=== PATIENT | female | born 1995 | race Two or more races ===

== ENCOUNTER 2024-06-02 12:42 | Emergency (ER) | payer OTHER ==
[2024-06-02 13:07] VITALS: BP 109/77; PULSE 83; RESP 16; TEMP 98.2; BMI 18.6
[2024-06-02 15:45] LABS: THROAT:GRP A STREP NOT DETECTED (NOTDETECTED)
== END 2024-06-02 14:35 | disposition home or self-care (01) ==
LOC: FER 12:42
DX: R05.9 Cough, unspecified (principal); J02.9 Acute pharyngitis, unspecified; R49.0 Dysphonia; R06.02 Shortness of breath; Z20.822 Contact with and (suspected) exposure to COVID-19
CPT/HCPCS: 0241U-QW; 84703; 87651; 99283-25